=== PATIENT | male | born 1995 | race Caucasian/White ===

== ENCOUNTER 2022-07-08 13:59 | Emergency (ER) | payer SELFPAY | END 2022-07-08 14:35 | disposition home or self-care (01) | LOC: JD.ED 13:59 | DX: H10.33 Unspecified acute conjunctivitis, bilateral (principal); Z88.0 Allergy status to penicillin | CPT/HCPCS: 99282 ==

== ENCOUNTER 2024-12-26 12:18 | Emergency (ER) | payer BC | END 2024-12-26 13:13 | disposition home or self-care (01) | LOC: JD.ED 12:18 | DX: S61.215A Laceration without foreign body of left ring finger without damage to nail, initial encounter (principal); Z79.899 Other long term (current) drug therapy; W26.8XXA Contact with other sharp object(s), not elsewhere classified, initial encounter; Y93.89 Activity, other specified | CPT/HCPCS: 12002; 99282; J2003 ==